=== PATIENT | male | born 1965 | race Caucasian/White ===

== ENCOUNTER 2021-10-02 11:51 | Emergency (ER) | payer BC ==
[~2021-10-02] VITALS: Ht 188 cm; Wt 115.7 kg
[2021-10-02] MEDS ORDERED: LIPITOR40 MG PO (12:06)
[2021-10-02] MEDS ORDERED: TOPROL XL25 MG PO (12:06)
[2021-10-02] MEDS ORDERED: ASA81BEC PO (12:07)
[2021-10-02] MEDS ORDERED: SUPER THERAVIT1 EACH PO (12:07)
[2021-10-02] MEDS ORDERED: LISINOPRIL5 MG PO (12:07)
[2021-10-02] MEDS ORDERED: IMDUR 30 MG TAB30 M1 PO (12:07)
[2021-10-02 13:50] LABS: URINE BILIRUBIN NEGATIVE (Negative); URINE BLOOD NEGATIVE (Negative); URINE CLARITY CLEAR; URINE COLOR YELLOW; URINE GLUCOSE-RANDOM NEGATIVE (Negative); URINE KETONES NEGATIVE (Negative); URINE LEUKOCYTES-REFLEX TRACE (Negative); URINE NITRITE-REFLEX NEGATIVE (Negative); URINE PROTEIN NEGATIVE (Negative); URINE UROBILINOGEN 0.2 E.U./dl (0.2-1.0)
[2021-10-02 13:54] LABS: ABSOLUTE BASOPHILS 0.1 thou/uL (0.0-0.2); ABSOLUTE EOSINOPHILS 0.1 thou/uL (0.0-0.7); ABSOLUTE LYMPHOCYTES 1.5 thou/uL (0.8-5.3); ABSOLUTE MONOCYTES 0.8 thou/uL (0.0-1.2); ABSOLUTE NEUTROPHILS 8.3 thou/uL (1.6-8.1); BASOPHILS 0.5 %; EOSINOPHILS 0.9 %; HEMATOCRIT 41.7 % (42.0-52.0); HEMOGLOBIN 14.2 gm/dL (14.0-18.0); LYMPHOCYTES 14.2 %; MCH 30.3 pg (26.0-34.0); MCV 89.1 fL (80.0-100.0); MONOCYTES 7.1 %; MPV 7.7 fl. (7.2-11.1); NUCLEATED RBCS 0 /100WBC; PLATELET COUNT* 258 thou/uL (150-400); POLYS 77.3 %; RBC 4.68 mil/uL (4.50-6.00); RDW-CV 12.2 % (10.5-14.5); WBC 10.7 thou/uL (4.0-11.0)
[2021-10-02 14:00] LABS: BACTERIA-REFLEX None Seen /HPF (None Seen); CASTS None Seen /LPF (None Seen); CRYSTALS None Seen /LPF (None Seen); SQUAMOUS 0-3 Few /LPF (0-3); URINE WBC-REFLEX 0-5 Rare /HPF (0-5)
[2021-10-02 14:01] LABS: CALCIUM 8.6 mg/dL (8.5-10.1); CREATININE 0.9 mg/dL (0.6-1.3); POTASSIUM 3.9 mmol/L (3.5-5.1)
[2021-10-02 14:01] LABS: URINE RBC None Seen /HPF (0-2)
[2021-10-02 14:05] LABS: ALBUMIN 3.6 g/dL (3.4-5.0); TOTAL BILIRUBIN 0.8 mg/dL (<0.1-1.0); TOTAL PROTEIN 6.9 g/dL (6.4-8.2)
[2021-10-02] MEDS ORDERED: APAP W/CODEINE1 TA2 PO (15:49)
[2021-10-02] MEDS ORDERED: ONDANSETRON HCL4 M2 PO (15:49)
[2021-10-02] MEDS ORDERED: METRONIDAZOLE500 M4 PO (15:49)
[2021-10-02] MEDS ORDERED: CIPRO500 M1 PO (15:49)
[2021-10-02 16:03] VITALS: BP 141/70
--- NOTE | 2021-10-04 15:08 | EKG ---
[place] [address] ELECTROCARDIOGRAM REPORT Name: MARCELLA RAMOS JR Room: [facility]#: [id number] Admission: 10/02/21 Attend Phys: Discharge: 10/02/21 Date of : 63 Date of Service: 10/02/21 1339 Report #: [id number] THIS REPORT FOR: //name// [facility] ED Test Date: 2021-10-02 Test Time: 13:39:03 Pat Name: MARCELLA RICHARD Department: Room: Gender: M Optometric Coordinator: : 1965 Requested By: Faby Molina Order Number: [id number] MD: Allan Wallace Measurements Intervals [place] Rate: 63 P: 49 [place]: 147 QRS: 31 QRSD: 102 T: 54 QT: 430 QTc: 441 Interpretive Statements Sinus rhythm Baseline wander in lead(s) V2 Compared to ECG 09/15/2007 12:44:48 Sinus bradycardia no longer present Sinus arrhythmia no longer present Electronically Signed On 10-04-2021 15:08:34 INFORMATION TECHNOLOGY SECURITY ANALYST by Allan Wallace [email or web address] <ELECTRONICALLY SIGNED> By: Allan Wallace MD, FACC 10/04/21 1508 1339 1339 Allan Wallace MD, FAC /EPI
== END 2021-10-02 16:04 | disposition home or self-care (01) ==
LOC: M.ERS 11:51
PROVIDERS: Physician Assistant
DX: K57.92 Diverticulitis of intestine, part unspecified, without perforation or abscess without bleeding (principal); Z90.49 Acquired absence of other specified parts of digestive tract; Z90.89 Acquired absence of other organs; Z98.890 Other specified postprocedural states; Z88.6 Allergy status to analgesic agent; Z88.5 Allergy status to narcotic agent